=== PATIENT | female | born 1975 | race Caucasian/White ===

== ENCOUNTER 2021-07-06 20:15 | Emergency (ER) | payer MEDICAID ==
[~2021-07-06] VITALS: Ht 165.1 cm; Wt 77.3 kg
[2021-07-06 21:19] LABS: BASO # 0.1 K/mm3 (0.0-0.2); BASO % 0.5 % (0.0-2.0); EOS # 0.1 K/mm3 (0.0-0.7); EOS % 0.9 % (0-4.0); GRAN # 7.1 K/mm3 (1.4-6.5); GRAN % 70.2 % (42.2-75.2); HEMATOCRIT 40.5 % (37.0-47.0); HEMOGLOBIN 13.3 g/dl (12.5-16.0); LYMPH # 2.3 K/mm3 (1.2-3.4); LYMPH % 22.7 % (20.0-51.0); MEAN CELL VOLUME 84 fl (80.0-100.0); MEAN CORPUSCULAR HEMOGLOBIN 28 pg (27.0-31.0); MEAN CORPUSCULAR HGB CONC 33 g/dl (33.0-37.0); MEAN PLATELET VOLUME 8.9 fl (7.4-10.4); MONO # 0.6 K/mm3 (0.1-0.6); MONO % 5.4 % (1.7-9.3); PLATELET COUNT 468 K/mm3 (130-400); REDCELL DISTRIBUTION WIDTH-CV 13.1 % (11.5-14.5)
[2021-07-06 21:44] LABS: ALBUMIN 3.8 gm/dL (3.5-5.0); BILIRUBIN,TOTAL 0.5 mg/dL (0.2-1.2); CALCIUM 9.5 mg/dL (8.4-10.2); CREATININE, serum 0.82 mg/dL (0.57-1.11); POTASSIUM 3.2 mmol/L (3.5-4.5); TOTAL PROTEIN 7.2 gm/dL (6.2-8.1)
[2021-07-07 00:25] LABS: COLLECTION METHOD CLEAN CATCH
[2021-07-07 00:36] LABS: PH 6 (5-8); SQUAMOUS EPITHELIAL 0-2 /hpf; URINE APPEARANCE Clear; URINE BACTERIA None Seen /hpf; URINE BILIRUBIN Negative (NEGATIVE); URINE BLOOD Negative (NEGATIVE); URINE COLOR Straw; URINE GLUCOSE Negative (NEGATIVE); URINE KETONE Negative (NEGATIVE); URINE LEUKOCYTE ESTERASE Negative (NEGATIVE); URINE NITRATE Negative (NEGATIVE); URINE PROTEIN(semi-quant) Negative (NEGATIVE); URINE RBC 0-2 /hpf; URINE UROBILINOGEN Negative (NEGATIVE)
[2021-07-07] MEDS ORDERED: ZOFRAN ODT4 MG PO (01:17)
[2021-07-07] MEDS ORDERED: PROTONIX 40MG T40 MG PO (01:17)
[2021-07-07] MEDS ORDERED: PERCOCET 325 MG1 TA2 PO (01:17)
[2021-07-07] MEDS ORDERED: CARAFATE 1GM1 G PO (01:17)
[2021-07-07 02:15] VITALS: BP 141/82; PULSE 64; TEMP 97.1
== END 2021-07-07 02:20 | disposition home or self-care (01) ==
LOC: COL.ER 20:15
PROVIDERS: Emergency Medicine
DX: K29.70 Gastritis, unspecified, without bleeding (principal); F17.290 Nicotine dependence, other tobacco product, uncomplicated
CPT/HCPCS: C9113; J1170; J2405; J2550; J7030; Q9967

== ENCOUNTER 2021-07-08 17:57 | Emergency (ER) | payer MEDICAID ==
[~2021-07-08 17:57] MED LIST: CARAFATE 1GM1 G PO; PERCOCET 325 MG1 TA2 PO; PROTONIX 40MG T40 MG PO; ZOFRAN ODT4 MG PO
== END 2021-07-08 18:38 | disposition left against medical advice (07) ==
LOC: COL.ER 17:57
DX: R52 Pain, unspecified (principal)

== ENCOUNTER 2021-07-11 16:39 | Emergency (ER) | payer MEDICAID ==
[~2021-07-11] VITALS: Ht 165.1 cm; Wt 79.5 kg
[2021-07-11 18:30] LABS: BASO % 0.5 % (0.0-2.0); EOS # 0.2 K/mm3 (0.0-0.7); EOS % 1.9 % (0-4.0); GRAN # 5.8 K/mm3 (1.4-6.5); LYMPH # 1.3 K/mm3 (1.2-3.4); LYMPH % 16.8 % (20.0-51.0); MEAN CELL VOLUME 85 fl (80.0-100.0); MEAN CORPUSCULAR HEMOGLOBIN 28 pg (27.0-31.0); MEAN CORPUSCULAR HGB CONC 33 g/dl (33.0-37.0); MEAN PLATELET VOLUME 9.1 fl (7.4-10.4); MONO # 0.4 K/mm3 (0.1-0.6); MONO % 5.3 % (1.7-9.3); PLATELET COUNT 373 K/mm3 (130-400); RED BLOOD COUNT 4.31 M/mm3 (4.10-5.30); REDCELL DISTRIBUTION WIDTH-CV 13.2 % (11.5-14.5)
[2021-07-11 18:31] LABS: HEMATOCRIT 36.6 % (37.0-47.0)
[2021-07-11 18:46] LABS: ALANINE AMINOTRANSFERASE 40 U/L (0-55); ALBUMIN 3.2 gm/dL (3.5-5.0); ALKALINE PHOSPHATASE 75 U/L (0-750); ANION GAP 8 mmol/L (7-16); AST,SGOT 26 U/L (5-34); BILIRUBIN,TOTAL 0.2 mg/dL (0.2-1.2); BLOOD UREA NITROGEN 9 mg/dL (7-19); CALCIUM 8.9 mg/dL (8.4-10.2); CARBON DIOXIDE 25 mmol/L (22-29); CHLORIDE 107 mmol/L (98-107); CREATININE, serum 0.76 mg/dL (0.57-1.11); GLUCOSE 93 mg/dL (70-99); POTASSIUM 3.6 mmol/L (3.5-4.5); SODIUM 140 mmol/L (136-145); TOTAL PROTEIN 6.2 gm/dL (6.2-8.1)
[2021-07-11 18:51] LABS: TROPONIN-I < 0.010 ng/mL (0.00-0.033)
[2021-07-11 22:08] VITALS: BP 174/97; PULSE 77; TEMP 98.2
[2021-07-11] MEDS ORDERED: ZOFRAN ODT4 MG PO (22:35)
[2021-07-11] MEDS ORDERED: NORCO 325 MG-51 TAB PO (22:35)
[2021-07-11] MEDS ORDERED: MOTRIN 800800 MG/TAB PO (22:35)
== END 2021-07-11 22:08 | disposition home or self-care (01) ==
LOC: COL.ER 16:39
PROVIDERS: Personal Emergency Response Attendant
DX: R07.9 Chest pain, unspecified (principal); R79.1 Abnormal coagulation profile; Z20.822 Contact with and (suspected) exposure to COVID-19
CPT/HCPCS: J2270; J2405; J7030; Q9967

== ENCOUNTER 2021-07-16 20:00 | Emergency (ER) | payer MEDICAID ==
[~2021-07-16] VITALS: Ht 165.1 cm; Wt 81.4 kg
[~2021-07-16 20:00] MED LIST changes: +MOTRIN 800800 MG/TAB PO; +NORCO 325 MG-51 TAB PO
[2021-07-16 20:39] VITALS: TEMP 98
[2021-07-16 22:03] LABS: COLLECTION METHOD CLEAN CATCH
[2021-07-16 22:08] LABS: BASO % 0.2 % (0.0-2.0); EOS # 0.1 K/mm3 (0.0-0.7); EOS % 0.5 % (0-4.0); GRAN # 8.1 K/mm3 (1.4-6.5); GRAN % 81.1 % (42.2-75.2); HEMATOCRIT 39.5 % (37.0-47.0); HEMOGLOBIN 12.9 g/dl (12.5-16.0); LYMPH # 1.4 K/mm3 (1.2-3.4); LYMPH % 13.9 % (20.0-51.0); MEAN CELL VOLUME 85 fl (80.0-100.0); MEAN CORPUSCULAR HEMOGLOBIN 28 pg (27.0-31.0); MEAN CORPUSCULAR HGB CONC 33 g/dl (33.0-37.0); MEAN PLATELET VOLUME 9.1 fl (7.4-10.4); MONO # 0.4 K/mm3 (0.1-0.6); MONO % 3.7 % (1.7-9.3); PLATELET COUNT 453 K/mm3 (130-400); RED BLOOD COUNT 4.64 M/mm3 (4.10-5.30); REDCELL DISTRIBUTION WIDTH-CV 13.7 % (11.5-14.5)
[2021-07-16 22:15] LABS: PH 6 (5-8); URINE APPEARANCE Hazy; URINE BACTERIA Many /hpf; URINE BILIRUBIN Negative (NEGATIVE); URINE BLOOD Negative (NEGATIVE); URINE COLOR Yellow; URINE GLUCOSE Negative (NEGATIVE); URINE KETONE Negative (NEGATIVE); URINE LEUKOCYTE ESTERASE Negative (NEGATIVE); URINE NITRATE Negative (NEGATIVE); URINE PROTEIN(semi-quant) Negative (NEGATIVE); URINE RBC 0-2 /hpf; URINE UROBILINOGEN Negative (NEGATIVE)
[2021-07-16 22:30] LABS: ALBUMIN 3.8 gm/dL (3.5-5.0); BILIRUBIN,TOTAL 0.4 mg/dL (0.2-1.2); C-REACTIVE PROTEIN 0.63 mg/dL (0.00-0.50); CALCIUM 9.7 mg/dL (8.4-10.2); CREATININE, serum 0.86 mg/dL (0.57-1.11); POTASSIUM 3.7 mmol/L (3.5-4.5); TOTAL PROTEIN 7.4 gm/dL (6.2-8.1)
[2021-07-16] MEDS ORDERED: REGLAN 10MG10 MG/TAB PO (23:40)
[2021-07-17 00:03] VITALS: BP 132/77; PULSE 76
== END 2021-07-17 00:03 | disposition home or self-care (01) ==
LOC: COL.ER 20:00
PROVIDERS: Nurse Practitioner Primary Care
DX: R10.13 Epigastric pain (principal)
CPT/HCPCS: C9113; J0780; J1200; J2550; J7030

== ENCOUNTER 2021-08-04 21:22 | Emergency (ER) | payer MEDICAID ==
[~2021-08-04] VITALS: Ht 165.1 cm; Wt 79.5 kg
[~2021-08-04 21:22] MED LIST changes: +REGLAN 10MG10 MG/TAB PO
[2021-08-04 21:36] VITALS: TEMP 97.8
[2021-08-04] MEDS ORDERED: COLACE 100100 MG/CAP PO (21:56)
[2021-08-04 22:05] VITALS: BP 144/78; PULSE 76
== END 2021-08-04 22:05 | disposition home or self-care (01) ==
LOC: COL.ER 21:22
DX: K64.9 Unspecified hemorrhoids (principal); Z90.710 Acquired absence of both cervix and uterus

== ENCOUNTER 2021-10-25 23:05 | Emergency (ER) | payer MEDICAID ==
[~2021-10-25] VITALS: Ht 165.1 cm; Wt 77.3 kg
[~2021-10-25 23:05] MED LIST changes: +COLACE 100100 MG/CAP PO
[2021-10-25 23:08] VITALS: TEMP 97.2
[2021-10-25 23:24] LABS: BASO % 0.4 % (0.0-2.0); EOS # 0.1 K/mm3 (0.0-0.7); EOS % 0.7 % (0.0-4.0); GRAN # 8.4 K/mm3 (1.4-6.5); GRAN % 78.9 % (42.2-75.2); HEMATOCRIT 42.2 % (37.0-47.0); HEMOGLOBIN 14.4 g/dl (12.5-16.0); LYMPH # 1.7 K/mm3 (1.2-3.4); LYMPH % 15.9 % (20.0-51.0); MEAN CELL VOLUME 81 fl (80.0-100.0); MEAN CORPUSCULAR HEMOGLOBIN 28 pg (27-31); MEAN CORPUSCULAR HGB CONC 34 g/dl (33.0-37.0); MONO # 0.4 K/mm3 (0.1-0.6); MONO % 3.8 % (1.7-9.3); PLATELET COUNT 493 K/mm3 (130-400); RED BLOOD COUNT 5.23 M/mm3 (4.10-5.30); REDCELL DISTRIBUTION WIDTH-CV 13.4 % (11.5-14.5)
[2021-10-25 23:43] LABS: BILIRUBIN,TOTAL 0.4 mg/dL (0.2-1.2); C-REACTIVE PROTEIN 0.75 mg/dL (0.00-0.50); CALCIUM 9.1 mg/dL (8.4-10.2); CREATININE, serum 0.78 mg/dL (0.57-1.11); POTASSIUM 4.2 mmol/L (3.5-4.5); TOTAL PROTEIN 8.1 gm/dL (6.2-8.1)
[2021-10-26] MEDS ORDERED: ROXICODONE 55 MG/TAB PO (01:17)
[2021-10-26] MEDS ORDERED: CARAFATE 1GM1 G PO ×2 (01:17)
[2021-10-26] MEDS ORDERED: ZOFRAN ODT4 MG PO (01:17)
[2021-10-26] MEDS ORDERED: PROTONIX 40MG T40 MG PO ×2 (01:17)
[2021-10-26 02:20] VITALS: BP 154/80; PULSE 80
== END 2021-10-26 02:20 | disposition home or self-care (01) ==
LOC: COL.ER 23:05
PROVIDERS: Nurse Practitioner
DX: K29.70 Gastritis, unspecified, without bleeding (principal)
CPT/HCPCS: J1170; J2270; J2405; J2550; J7030; Q9967

== ENCOUNTER 2021-11-08 02:11 | Emergency (ER) | payer MEDICAID ==
[~2021-11-08] VITALS: Ht 165.1 cm; Wt 77.3 kg
[~2021-11-08 02:11] MED LIST changes: +ROXICODONE 55 MG/TAB PO
[2021-11-08 02:43] VITALS: TEMP 99
[2021-11-08 03:33] LABS: COLLECTION METHOD CLEAN CATCH
[2021-11-08 03:37] LABS: BASO # 0.1 K/mm3 (0.0-0.2); BASO % 0.5 % (0.0-2.0); EOS # 0.1 K/mm3 (0.0-0.7); EOS % 0.5 % (0.0-4.0); GRAN # 8.3 K/mm3 (1.4-6.5); GRAN % 75.4 % (42.2-75.2); HEMATOCRIT 40.7 % (37.0-47.0); LYMPH % 18.1 % (20.0-51.0); MEAN CELL VOLUME 85 fl (80.0-100.0); MEAN CORPUSCULAR HEMOGLOBIN 27 pg (27-31); MEAN CORPUSCULAR HGB CONC 32 g/dl (33.0-37.0); MEAN PLATELET VOLUME 9.2 fl (7.4-10.4); MONO # 0.6 K/mm3 (0.1-0.6); MONO % 5.2 % (1.7-9.3); PLATELET COUNT 422 K/mm3 (130-400); RED BLOOD COUNT 4.78 M/mm3 (4.10-5.30); REDCELL DISTRIBUTION WIDTH-CV 13.5 % (11.5-14.5)
[2021-11-08 03:41] LABS: MUCOUS Present (NOT PRESENT); PH 6 (5-8); SQUAMOUS EPITHELIAL 0-2 /hpf (0-10); URINE APPEARANCE Hazy (CLEAR/HAZY); URINE BACTERIA Rare /hpf (NONE SEEN); URINE BILIRUBIN Negative (NEGATIVE); URINE BLOOD Negative (NEGATIVE); URINE COLOR Yellow (YELLOW); URINE GLUCOSE Negative (NEGATIVE); URINE KETONE Trace (NEGATIVE); URINE LEUKOCYTE ESTERASE Negative (NEGATIVE); URINE NITRATE Negative (NEGATIVE); URINE PROTEIN(semi-quant) Negative (NEGATIVE); URINE UROBILINOGEN Negative (NEGATIVE)
[2021-11-08 04:28] LABS: ALBUMIN 3.5 gm/dL (3.5-5.0); BILIRUBIN,TOTAL 0.5 mg/dL (0.2-1.2); CALCIUM 9.1 mg/dL (8.4-10.2); CREATININE, serum 0.8 mg/dL (0.57-1.11); POTASSIUM 3.2 mmol/L (3.5-4.5); TOTAL PROTEIN 6.8 gm/dL (6.2-8.1)
[2021-11-08] MEDS ORDERED: CARAFATE 1GM1 G PO (04:36)
[2021-11-08] MEDS ORDERED: NORCO 325 MG-51 TAB PO (04:36)
[2021-11-08] MEDS ORDERED: REGLAN 5MG T5 MG/TAB PO (04:36)
[2021-11-08] MEDS ORDERED: PROTONIX 40MG T40 MG PO (04:36)
[2021-11-08 04:46] VITALS: BP 204/119; PULSE 71
== END 2021-11-08 04:46 | disposition home or self-care (01) ==
LOC: COL.ER 02:11
PROVIDERS: Emergency Medicine
DX: R10.13 Epigastric pain (principal); G89.29 Other chronic pain; D72.829 Elevated white blood cell count, unspecified; R03.0 Elevated blood-pressure reading, without diagnosis of hypertension; Z90.710 Acquired absence of both cervix and uterus; Z79.891 Long term (current) use of opiate analgesic
CPT/HCPCS: J1170; J2765; J3010; J7120

== ENCOUNTER → 2024-04-16 | Outpatient (CLI) | payer MEDICAID ==
[~2024-04-16] MED LIST changes: +PRINZIDE 25 MG-1 TAB PO; +PROZAC40 MG PO; +REGLAN 5MG T5 MG/TAB PO; +XANAX 0.5MG0.5 MG PO
== END ==
LOC: MHCPAIN 15:11
DX: M51.26 Other intervertebral disc displacement, lumbar region (principal); M47.816 Spondylosis without myelopathy or radiculopathy, lumbar region; M46.1 Sacroiliitis, not elsewhere classified
CPT/HCPCS: G0463

== ENCOUNTER → 2024-05-02 | Outpatient (CLI) | payer MEDICAID ==
[~2024-05-02] MED LIST changes: +Iohexol 300 - 10 ML VIAL ONE
== END ==
LOC: MHCPAIN 13:09
DX: M54.50 Low back pain, unspecified (principal); M53.3 Sacrococcygeal disorders, not elsewhere classified; M46.1 Sacroiliitis, not elsewhere classified
CPT/HCPCS: G0260; J0665; J1010; Q9967

== ENCOUNTER → 2024-07-04 | Outpatient (CLI) | payer MEDICAID ==
[~2024-07-04] MED LIST changes: +Lidocaine PF 2% (20 MG/ML) 2 ML VIAL ONE
== END ==
LOC: MHCPAIN 13:21
DX: M54.16 Radiculopathy, lumbar region (principal)
CPT/HCPCS: J1100; Q9967

== ENCOUNTER 2024-07-27 19:46 | Emergency (ER) | payer MEDICAID ==
[~2024-07-27] VITALS: Ht 162.6 cm; Wt 53.2 kg
[~2024-07-27 19:46] MED LIST changes: -Iohexol 300 - 10 ML VIAL ONE; -Lidocaine PF 2% (20 MG/ML) 2 ML VIAL ONE
[2024-07-27 19:51] VITALS: TEMP 99
[2024-07-27] MEDS ORDERED: NS 1,000 ML IV ONE (21:00)
[2024-07-27 21:18] LABS: BASO % 0.6 % (0.0-2.0); EOS % 0.6 % (0.0-4.0); GRAN # 5.4 K/mm3 (1.4-6.5); HEMATOCRIT 39.8 % (37.0-47.0); HEMOGLOBIN 13.4 g/dl (12.5-16.0); LYMPH # 1.4 K/mm3 (1.2-3.4); LYMPH % 18.8 % (20.0-51.0); MEAN CELL VOLUME 88 fl (80.0-100.0); MEAN CORPUSCULAR HEMOGLOBIN 30 pg (27-31); MEAN CORPUSCULAR HGB CONC 34 g/dl (33.0-37.0); MEAN PLATELET VOLUME 9.2 fl (7.4-10.4); MONO # 0.4 K/mm3 (0.1-0.6); MONO % 5.9 % (1.7-9.3); PLATELET COUNT 339 K/mm3 (130-400); RED BLOOD COUNT 4.55 M/mm3 (4.10-5.30); REDCELL DISTRIBUTION WIDTH-CV 12.7 % (11.5-14.5)
[2024-07-27 21:34] LABS: ALANINE AMINOTRANSFERASE 51 U/L (0-55); ALBUMIN 3.7 g/dL (3.5-5.0); ALKALINE PHOSPHATASE 207 U/L (40-150); ANION GAP 11 mmol/L (7-16); AST,SGOT 38 U/L (5-34); BILIRUBIN,TOTAL 0.4 mg/dL (0.2-1.2); BLOOD UREA NITROGEN 6 mg/dL (7-19); CHLORIDE 105 mEq/L (98-107); CREATININE, serum 0.79 mg/dL (0.57-1.11); GLUCOSE 102 mg/dL (70-99); POTASSIUM 3.4 mEq/L (3.5-4.5); SODIUM 139 mEq/L (136-145)
[2024-07-27 21:46] LABS: TROPONIN-I < 0.010 ng/mL (0.00-0.033)
[2024-07-27] MEDS ORDERED: NS 50 ML IV SCH (23:59)
[2024-07-27] MEDS ORDERED: Iohexol 300 - 100 ML VIAL IV ONE (23:59)
[2024-07-28] MEDS ORDERED: Morphine 4 MG/ML VIAL IV ONE (00:15)
[2024-07-28] MEDS ORDERED: Ketorolac 15 MG/ML VIAL IV ONE (01:00)
[2024-07-28 01:15] VITALS: BP 169/100; PULSE 80
== END 2024-07-28 01:27 | disposition home or self-care (01) ==
LOC: COL.ER 19:46
PROVIDERS: Personal Emergency Response Attendant
DX: R07.89 Other chest pain (principal); R10.812 Left upper quadrant abdominal tenderness; R00.0 Tachycardia, unspecified; Z85.028 Personal history of other malignant neoplasm of stomach; Z85.41 Personal history of malignant neoplasm of cervix uteri
CPT/HCPCS: J1885; J2270; J7030; Q9967